=== PATIENT | female | born 1955 | race Caucasian/White ===

== ENCOUNTER 2024-08-26 06:15 | Day surgery (SDC) | payer OTHER ==
[2024-08-20 15:52] VITALS: BMI 26.4
[2024-08-26] MEDS ORDERED: VANCOMYCIN 1,000 MG VIAL (RESTRICTED TO ID ONLY) ONE ×2 (07:20→08:23)
[2024-08-26] MEDS ORDERED: TRANEXAMIC ACID 1000 MG/10 ML VIAL ONE (07:20)
[2024-08-26] MEDS ORDERED: PROPOFOL 40 ML ONE (07:27)
[2024-08-26] MEDS ORDERED: MIDAZOLAM HCL 2 MG/2 ML SINGLE DOSE VIAL ONE ×3 (07:27→11:12)
[2024-08-26] MEDS ORDERED: BUPIVACAINE LIPOSOME/PF (EXPAREL) 266 MG/20 ML VIAL ONE (07:41)
[2024-08-26] MEDS ORDERED: BUPIVACAINE HCL/PF 0.5% (5MG/ML) 10 ML VIAL ONE (07:42)
[2024-08-26] MEDS ORDERED: LIDOCAINE HCL/PF 2% SDV 5ML VIAL ONE (08:23)
[2024-08-26] MEDS ORDERED: ceFAZolin SODIUM 1 GM VIAL ONE (08:23)
[2024-08-26] MEDS ORDERED: DEXAMETHASONE SOD PHOSPHATE 4 MG/1 ML VIAL ONE (08:33)
[2024-08-26] MEDS ORDERED: ONDANSETRON 4 MG/2 ML VIAL ONE ×2 (08:33→10:36)
[2024-08-26] MEDS ORDERED: ACETAMINOPHEN INJECTION 100 ML ONE (09:49)
[2024-08-26] MEDS ORDERED: ONDANSETRON 4 MG/2 ML VIAL IVPUSH PRN ×2 (10:52→10:58)
[2024-08-26] MEDS ORDERED: MAG HYDROX/AL HYDROX/SIMETH 30 ML UNIT-DOSE CUP PO PRN (10:52)
[2024-08-26] MEDS ORDERED: LACTATED RINGERS SOLUTION 1,000 ML IV SCH (11:00)
[2024-08-26] MEDS ORDERED: FENTANYL CITRATE/PF 50 MCG/ML VIAL ONE ×2 (11:01→11:40)
[2024-08-26] MEDS: MIDAZOLAM HCL 2 MG/2 ML SINGLE DOSE VIAL IVPUSH ONE (11:15)
[2024-08-26] MEDS: oxyCODONE HCL 5 MG TABLET PO PRN ×2 (12:05→19:48)
[2024-08-26] MEDS: GABAPENTIN 400 MG CAPSULE PO SCH (12:40)
[2024-08-26] MEDS: LACTATED RINGERS SOLUTION 1,000 ML IV SCH (14:40)
[2024-08-26] MEDS: CEFAZOLIN 2 GM/D5W 2 GRAM/50 ML ML IVPB SCH (17:04)
[2024-08-26] MEDS: VANCOMYCIN/WATER FOR INJ (PEG) 1 GM/200 ML BAG IVPB ONE (17:07)
[2024-08-26] MEDS: metFORMIN HCL 500 MG TABLET (FP) PO SCH (17:08)
[2024-08-26] MEDS: ACETAMINOPHEN 500 MG TABLET (FP) PO SCH (18:02)
[2024-08-26] MEDS: FAMOTIDINE 20 MG TABLET PO SCH (21:20)
[2024-08-26] MEDS: LISINOPRIL 10 MG TABLET PO SCH (21:20)
[2024-08-26] MEDS: ATORVASTATIN CA 10 MG TABLET (FP) PO SCH (21:20)
[2024-08-26] MEDS: SENNOSIDES/DOCUSATE COMBO (SENNA PLUS) TABLET (UD) PO SCH (21:20)
[2024-08-26] MEDS: oxyCODONE HCL 10 MG SUSTAINED ACTING TABLET PO SCH (21:20)
[2024-08-26] MEDS ORDERED: PATIENT'S OWN MEDICATION (NON-FORMULARY) (Pravastatin Sodium [Pravachol] 40 MG Tablet) PO SCH (22:00)
[2024-08-27 08:34] LABS: HEMATOCRIT 25.3 % (32.4-45.2); MCHC 31.7 g/dl (32.0-36.0); MEAN CELL VOLUME 59.6 fl (80-96); MEAN PLT VOLUME 10.1 fl (7.5-11.1); PLATELET COUNT 181.7 10^3/uL (134-434); RBC 4.24 10^6/uL (3.60-5.2); RDW 21.1 % (11.6-15.6); WHITE BLOOD COUNT 6.1 10^3/uL (4.0-10.8)
[2024-08-27 08:36] LABS: MCH 18.9 pg (25.7-33.7)
[2024-08-27 09:42] LABS: CALCIUM 8.2 mg/dl (8.5-10.1); CREATININE 0.9 mg/dl (0.6-1.3); POTASSIUM 3.7 mmol/L (3.5-5.1)
[2024-08-27] MEDS: KETOROLAC TROMETHAMINE 15 MG/ML VIAL IVPUSH SCH (09:54)
[2024-08-27] MEDS: PANTOPRAZOLE 40 MG TABLET PO SCH (09:56)
[2024-08-27] MEDS: ASPIRIN 325 MG TABLET PO SCH (09:56)
[2024-08-27] MEDS: metoPROLOL SUCCINATE 25 MG TAB.SR.24H (FP) PO SCH (09:56)
[2024-08-27] MEDS: MULTIVITAMINS (DAILY MVI) TABLET (FP) PO SCH (09:56)
[2024-08-27] MEDS: SODIUM CHLORIDE 0.9% 500 ML INFUS.BAG IV ONE (10:59)
[2024-08-27] MEDS: ACETAMINOPHEN 1000 MG/100 ML BAG IVPB SCH (14:59)
[2024-08-28 08:28] LABS: MCHC 31.5 g/dl (32.0-36.0); MEAN CELL VOLUME 59.7 fl (80-96); PLATELET COUNT 142.7 10^3/uL (134-434); RBC 3.69 10^6/uL (3.60-5.2); RDW 21.1 % (11.6-15.6); WHITE BLOOD COUNT 5.5 10^3/uL (4.0-10.8)
[2024-08-28 08:30] LABS: MCH 18.8 pg (25.7-33.7)
[2024-08-28 08:34] LABS: HEMOGLOBIN 6.9 G/dL (10.7-15.3)
[2024-08-28] MEDS: LIDOCAINE 5% TOPICAL PATCH TP SCH (11:29)
[2024-08-28] MEDS: CycloBENZAprine HCL 5 MG TABLET PO PRN (20:17)
[2024-08-29 01:16] VITALS: RESP 18
[2024-08-29 06:34] VITALS: TEMP 98.4
[2024-08-29] MEDS: LIDOCAINE PATCH REMOVAL MC SCH (06:43)
[2024-08-29 08:59] LABS: ALBUMIN 3.6 g/dl (3.4-5.0); BILIRUBIN,TOTAL 0.7 mg/dl (0.2-1); CALCIUM 8.3 mg/dl (8.5-10.1); CREATININE 0.7 mg/dl (0.6-1.3); POTASSIUM 4.3 mmol/L (3.5-5.1); TOT PROT 5.5 g/dl (6.4-8.2)
[2024-08-29 09:11] LABS: BASO % 0.8 % (0-2.0); EOS % 6.3 % (0-4.5); HEMATOCRIT 25.7 % (32.4-45.2); HEMOGLOBIN 8.1 GM/dL (10.7-15.3); LYMPH % 36.3 % (8-40); MCHC 31.5 g/dl (32.0-36.0); MEAN PLT VOLUME 9.2 fl (7.5-11.1); MONO % 10.2 % (3.8-10.2); NEUT % 46.4 % (42.8-82.8); PLATELET COUNT 137 10^3/uL (134-434); RBC 4.29 M/mm3 (3.60-5.2); WHITE BLOOD COUNT 4.3 K/mm3 (4.0-10.0)
[2024-08-29 09:13] LABS: MCH 18.9 pg (25.7-33.7)
[2024-08-29 09:19] VITALS: BP 122/59; PULSE 74
[2024-08-29 10:13] LABS: ANISOCYTOSIS 1+; MACROCYTOSIS 1+
== END 2024-08-29 17:10 | disposition home or self-care (01) ==
LOC: SUATTDRO 06:15 → FASUSAT 06:15 → FM/S 12:54 → FASUSAT 08-29 17:10
PROC: 0RRJ00Z Replacement of Right Shoulder Joint with Reverse Ball and Socket Synthetic Substitute, Open Approach (ICD-10-PCS; principal; 2024-08-26 08:37)
PROC: 0MB10ZZ Excision of Right Shoulder Bursa and Ligament, Open Approach (ICD-10-PCS; 2024-08-26 08:37)
DX: M19.011 Primary osteoarthritis, right shoulder (principal); M75.101 Unspecified rotator cuff tear or rupture of right shoulder, not specified as traumatic; M75.21 Bicipital tendinitis, right shoulder; M67.411 Ganglion, right shoulder
CPT/HCPCS: 23076; 23472; C1776; 36415; 36430; 73030-TC-RT-FY; 80048; 80053; 82728; 82962; 83540; 83550; 85025; 85027; 86850; 86900; 86901; 86922; 88304-TC; 88305-TC; 88311-TC; 88342-TC; 94760; 97116-GP; 97162-GP; C1713; C1757; J0131; P9058